=== PATIENT | female | born 1970 | race Caucasian/White ===

== ENCOUNTER 2018-04-11 00:18 | Outpatient (CLI) | payer BC ==
[2018-04-11 09:59] LABS: #Basophils 0.1 thou/uL (0.0-0.2); #Lymphocytes 1.6 thou/uL (1.20-3.40); #Monocytes 0.3 thou/uL (0.11-0.59); #Neutrophils 4.4 thou/uL (1.40-6.50); %Basophils 1.4 % (0.0-1.0); %Eosinophils 0.7 % (0.0-10.0); %Monocytes 5.1 % (0.0-10.0); %Neutrophils 67.8 % (42.0-75.0); Hemoglobin 15.6 g/dL (12.0-16.0); Mean Corpuscular HGB CONC 33.3 g/dL (32.0-36.0); Mean Corpuscular Hemoglobin 31.2 pg (27.0-31.0); Mean Corpuscular Volume 93.8 fL (78.0-98.0); Mean Platelet Volume 8.7 fL (7.4-10.4); Platelet Count 371 thou/uL (130-400); Red Blood Cell (RBC) Count 4.99 mill/uL (4.20-5.40); White Blood Cell (WBC) Count 6.4 thou/uL (4.8-10.8)
[2018-04-11 10:06] LABS: BHCG - Serum Negative (NEGATIVE); Pregs Control Background? CLEAR/WHITE (CLR/WHITE); Pregs Control Bar Appear? YES (CONTROL BAR)
[2018-04-11 10:16] LABS: Anion Gap 17 mmol/L (10-20); BUN (Urea Nitrogen) 12 mg/dL (7.0-18.7); Calc. Creatinine Clearance 0 mL/min (70-130); Calcium 10.2 mg/dL (7.8-10.44); Carbon Dioxide 20 mmol/L (22-29); Chloride 107 mmol/L (98-107); Estimated GFR-MDRD 71; Glucose 106 mg/dL (70-105); Potassium 4.2 mmol/L (3.5-5.1); Sodium 140 mmol/L (136-145)
== END 2018-04-11 00:19 | disposition home or self-care (01) ==
LOC: LABBT 00:18
PROVIDERS: ATTEND Surgery
DX: Z01.812 Encounter for preprocedural laboratory examination (principal); C50.919 Malignant neoplasm of unspecified site of unspecified female breast
CPT/HCPCS: 80048; 84703; 85025

== ENCOUNTER 2018-04-12 12:58 | Outpatient (CLI) | payer BC ==
[~2018-04-12 12:58] MED LIST: Gadobenate Dimeglumine 529 MG/1 ML (20ML VIAL) ONE
--- NOTE | 2018-04-12 15:03 | MRI ---
MRI BILATERAL BREAST WITHOUT AND WITH CONTRAST: History: Right breast cancer at the 10 o'clock position of the right breast. Evaluate for multi-centr ic or contralateral disease. Technique: Multiplanar, multisequence MRI images were obtained of the bilateral breasts without and w ith IV contrast. FINDINGS: Heterogeneously dense breast parenchyma is seen. Minimal background parenchymal enhancement is seen. There are numerous scattered foci of high T2 signal in both breasts which are nonenhancing and repres ent cysts. There is a 9 mm area of enhancement in the outer aspect of the right breast. This is assoc iated an area of susceptibility artifact which likely represents a biopsy clip. This likely correspon ds to the lesion at the 10 o'clock position in the right breast. More superficial to this lesion, the re is a well circumscribed 7 mm enhancing mass. This demonstrates high T2 signal and may represent a prominent intramammary lymph node. This is approximately 1.9 cm from the mass deeper in the breast. B oth of these lesions are approximately 5-6 cm from the nipple areolar complex. No other abnormal areas of enhancement are seen within the right breast or left breast. There is high T1 signal in the ducts leading up to right nipple which may represent proteinaceous or hemorrhagic m aterial. No axillary adenopathy is seen. No internal mammary lymph nodes are identified. The visualized anterior liver and osseous structures are unremarkable. IMPRESSION: There is a right breast which represents the mass previously biopsied and is consistent with the arnaldo ent's diagnosis of malignancy. Superficial to this mass there is a well circumscribed nodule. This ma y represent either a satellite lesion or a prominent intramammary lymph node. If this a lymph node, t his may or may not contain metastatic disease. However, this is very near the biopsied mass and likel y would be removed with a lumpectomy specimen. IMPRESSION: BIRADS category 6 - known malignancy. Appropriate action to be taken.
== END 2018-04-12 12:59 | disposition home or self-care (01) ==
LOC: BICMRI 12:58
PROVIDERS: ATTEND Internal Medicine Hematology & Oncology
DX: C50.411 Malignant neoplasm of upper-outer quadrant of right female breast (principal)
CPT/HCPCS: A9577; C8908

== ENCOUNTER 2018-04-13 14:29 | Outpatient (CLI) | payer BC ==
--- NOTE | 2018-04-13 15:04 | ULT ---
RIGHT AXILLARY ULTRASOUND: Comparison: MRI breast, 04-12-18. History: Right breast cancer. Evaluate for axillary metastatic disease. Technique: Multiplanar grayscale and color doppler images obtained in a targeted ultrasound of the [facility] axilla. IMPRESSION: Normal appearing lymph nodes are seen in the right axilla. The largest measures 2.[address] ill contains a normal fatty hilum. No pathologic appearing lymph nodes are seen in the right axilla. IMPRESSION: No evidence of microscopic spread to the right axilla. POS: BRIGHT
== END 2018-04-13 14:30 | disposition home or self-care (01) ==
LOC: BICULT 14:29
PROVIDERS: ATTEND Internal Medicine Hematology & Oncology
DX: C50.911 Malignant neoplasm of unspecified site of right female breast (principal)
CPT/HCPCS: 76999

== ENCOUNTER 2018-04-14 07:02 | Day surgery (SDC) | payer BC ==
[2018-04-11 09:13] VITALS: BMI 24.0
[2018-04-14] MEDS ORDERED: Fentanyl 100 MCG/2 ML VIAL ONE ×2 (11:42→14:22)
[2018-04-14] MEDS ORDERED: Midazolam HCl 2 mg/2 ml Vial ONE (11:43)
[2018-04-14] MEDS ORDERED: Bupivacaine HCl 0.5%/Epinephrine 1:200,000/PF 30 ml Vial ONE (13:00)
[2018-04-14] MEDS ORDERED: Lidocaine 2% PF 5 ML VIAL ONE (13:00)
[2018-04-14] MEDS ORDERED: Dexamethasone 20 MG/5 ML VIAL ONE (13:39)
[2018-04-14] MEDS ORDERED: Ondansetron PF 4 MG/2 ML Vial ONE (13:39)
[2018-04-14] MEDS ORDERED: PROPOFOL 200 MG/20 ML VIAL ONE (13:39)
[2018-04-14] MEDS ORDERED: Lidocaine 1% PF 5 ML VIAL ONE (13:39)
[2018-04-14] MEDS ORDERED: Meperidine HCl/PF 25 MG/ML VIAL ONE (14:23)
--- NOTE | 2018-04-14 14:30 | NM ---
NUCLEAR MEDICINE LYMPHASCINTIGRAPHY: History Right breast cancer. COMPARISON: None. TECHNIQUE: The patient was administered 0.392 mCi of Technetium 99m sulfur colloid. Images were obtained immedi ately, at 1 and 2 hours. FINDINGS: On the 2 hour images, there is uptake in the radiotracer best demonstrated on the right lateral view. Uptake is presumed to be in an axillary lymph node. IMPRESSION: Uptake in the right breast, presumed to be in the axilla as noted on the 2-hour view. The skin was m arked. POS: BRIGHT
[2018-04-14] MEDS ORDERED: HYDROcodone/Acetaminophen 5/325 mg Tablet ONE (15:34)
--- NOTE | 2018-04-15 07:44 | MMO ---
RIGHT BREAST NEEDLE LOCALIZATION RIGHT BREAST SURGICAL SPECIMEN RADIOGRAPH: History: Right breast cancer. Surgical excision for lumpectomy. FINDINGS: Successful right breast needle localization. 7.5 cm [place] needle and wire are adjacent to the clip. F ilms were marked. Technique: Consent obtained to perform a right breast needle localization. Right breast was compressed in the la teral projection and the clip was identified. Skin was prepped and draped in sterile fashion. 1% Lido sanjiv, buffered with sodium bicarbonate was used for local anesthesia. A 7.5 [place] needle and wire we re placed such that the wire and needle were adjacent to the clip. Pre and post wire deployment image s were obtained. There were no immediate or post procedure complications. [place] needle was secured to the patient. SPECIMEN RADIOGRAPH: There is a specimen radiograph demonstrating the biopsy clips and wire. IMPRESSION: Successful right breast needle localization. POS: [facility]
--- NOTE | 2018-04-15 14:46 | OP ---
DATE OF PROCEDURE: 04/14/2018 PREOPERATIVE DIAGNOSIS: Right breast cancer. POSTOPERATIVE DIAGNOSIS: Right breast cancer. PROCEDURE: 1. Partial mastectomy after needle localization. 2. Right deep axillary node biopsy and sentinel node protocol. ANESTHESIA: General. ESTIMATED BLOOD LOSS: Minimal. COMPLICATIONS: None. SPECIMEN: 1. Right breast mass marked with two short superior, one long lateral, sent to Path for final diagnosis. 2. Smithers node sent for final diagnosis. DESCRIPTION OF PROCEDURE: The patient underwent preop placement of needle localization wire and had lymphoscintigraphy on the day of surgery. She was taken to the operating room and laid supine on the operating room table. After general anesthetic was obtained, the right chest, lateral chest wall, axilla was all prepped and draped in a sterile fashion. Incision was made on the edge of the areola in the area of needle localization wire. Flaps were raised superior, medially, inferiorly and laterally around the end of the needle localization wire. The specimen was marked with two short superior, one long lateral, and sent the specimen x-ray, which revealed a clip to be in the specimen. The wound was irrigated. Local anesthetic was applied and the wound was closed in 3-0 Vicryl, 4-0 Monocryl, and Dermabond. 5 mL of methylene blue dye had been infiltrated under the right nipple prior to the procedure and massaged for 10 minutes. A second incision was made along the inferior hairline of the right axilla and cautery was dissected down through clavipectoral fascia into the axilla. Neoprobe was used to find the area of increased uptake and there were a few lymph nodes removed. Background counts dropped to 0. The wound was irrigated. Local anesthetic was applied. The wound was closed in 3-0 Vicryl, 4-0 Monocryl, and Dermabond. The patient was sent to Recovery in stable condition. All instrument counts, needle counts, and lap counts are correct. Job ID: [id number]
== END 2018-04-14 17:15 | disposition home or self-care (01) ==
LOC: SDC 07:02
PROVIDERS: ATTEND Surgery
PROC: 0HBT0ZX Excision of Right Breast, Open Approach, Diagnostic (ICD-10-PCS; principal; 2018-04-14)
PROC: 0HBT0ZZ Excision of Right Breast, Open Approach (ICD-10-PCS; principal; 2018-04-14)
DX: C50.411 Malignant neoplasm of upper-outer quadrant of right female breast (principal); Z17.0 Estrogen receptor positive status [ER+]; Z79.899 Other long term (current) drug therapy; Z88.6 Allergy status to analgesic agent
CPT/HCPCS: 19281; 76098; 78195; 88307; 88342; A9541; J0670; J1100; J2001; J2175; J2250; J2405; J2704; J3010; Q9968

== ENCOUNTER 2018-04-28 14:29 | Outpatient (CLI) | payer BC ==
--- NOTE | 2018-04-28 15:40 | ULT ---
LIMITED RIGHT BREAST ULTRASOUND: Date: 04/28/18 PROVIDED CLINICAL HISTORY: History of breast cancer, accessory breast tissue prominence. FINDINGS: Correlation is made with the breast MRI dated 04/12/18 Limited sonographic interrogation was performed of the inferior aspect of the right breast in the reg ion of palpable concern. There is a small intramammary lymph node measuring approximately 5.0 mm. Adj acent to this is a circumscribed anechoic structure measuring about 7-8 mm without internal complexit y or evidence for flow. This portion of the breast demonstrated no enhancing findings on the breast M RI of 04/12/18. IMPRESSION: No concerning sonographic findings are seen involving the interrogated portion of the right breast. POS: OFF
== END 2018-04-28 14:30 | disposition home or self-care (01) ==
LOC: BICULT 14:29
PROVIDERS: ATTEND Internal Medicine Hematology & Oncology
DX: C50.911 Malignant neoplasm of unspecified site of right female breast (principal)

== ENCOUNTER 2018-04-29 11:20 | Day surgery (SDC) | payer BC ==
[2018-04-29] MEDS ORDERED: Bupivacaine/Epinephrine 0.25% 30 ML VIAL ONE (12:03)
[2018-04-29] MEDS ORDERED: Lidocaine 2% PF 5 ML VIAL ONE (12:03)
[2018-04-29] MEDS ORDERED: Fentanyl 100 MCG/2 ML VIAL ONE (12:20)
[2018-04-29] MEDS ORDERED: Meperidine HCl/PF 25 MG/ML VIAL ONE (13:20)
[2018-04-29] MEDS ORDERED: PROPOFOL 200 MG/20 ML VIAL ONE (13:47)
[2018-04-29] MEDS ORDERED: Lidocaine 1% PF 5 ML VIAL ONE (13:47)
--- NOTE | 2018-04-29 14:04 | OP ---
DATE OF PROCEDURE: 04/29/2018 PREOPERATIVE DIAGNOSES: Right breast cancer. POSTOPERATIVE DIAGNOSIS: Right breast cancer. PROCEDURE PERFORMED: Tunneled central line and subcutaneous port (MediPort CT injectable low-profile). ANESTHESIA: General. ESTIMATED BLOOD LOSS: Minimal. COMPLICATIONS: None. SPECIMEN: None. FINDINGS: The tip of the catheter was at the atriocaval junction. DESCRIPTION OF PROCEDURE: The patient was taken to the operating room and laid supine on the operating room table. After general anesthetic was obtained, bilateral chest and neck was prepped and draped in a sterile fashion. Local anesthetic was infiltrated of the left IJ vein. Internal jugular vein was cannulated using a 22-gauge finder needle followed by a Seldinger wire was passed into the superior vena cava under fluoro guidance. Small lu was made at the wire entrance site. A separate 3 cm incision was made in the left upper chest. Subcutaneous pocket was made below the lower incision. Tubing for the MediPort and tunneled from the inferior to the superior incision. The suture sheath was placed over the wire into the superior vena cava under fluoro guidance. The dilator and wire were removed and the end of the catheter was sewed into the sheath and the sheath was peeled away. The tip of the catheter was at the atriocaval junction. MediPort tubing cut to fit the MediPort with lower incision, connected to the MediPort, was just sewn to the chest wall in the subcutaneous pocket using Prolene. MediPort flushes and draws blood without difficulty, was flushed with a heparin flush. The wounds were irrigated and closed using 3-0 Vicryl, 4-0 Monocryl, and Dermabond. The patient was sent to Recovery in stable condition. All instrument counts, needle counts, and lap counts were correct. Job ID: [id number]
[2018-04-29] MEDS ORDERED: diphenhydrAMINE 50 MG/ML VIAL ONE (14:22)
--- NOTE | 2018-04-29 16:03 | RAD ---
CHEST ONE VIEWS: HISTORY: Status post Mediport insertion for position evaluation. FINDINGS: Left-sided Mediport filter in place with the tip in the upper superior vena cava region. Heart size is normal. Lungs are clear. No pneumothorax or pleural effusion. IMPRESSION: Left Mediport catheter placement with the tip in the superior aspect of the superior vena cava. No p neumothorax. POS: [facility]
== END 2018-04-29 15:30 | disposition home or self-care (01) ==
LOC: SDC 11:20
PROVIDERS: ATTEND Surgery
PROC: 02HV33Z Insertion of Infusion Device into Superior Vena Cava, Percutaneous Approach (ICD-10-PCS; principal; 2018-04-29)
DX: C50.911 Malignant neoplasm of unspecified site of right female breast (principal); Z88.6 Allergy status to analgesic agent; Z88.8 Allergy status to other drugs, medicaments and biological substances; Z79.899 Other long term (current) drug therapy
CPT/HCPCS: 71045; C1788; J1200; J1642; J2001; J2175; J3010

== ENCOUNTER 2018-05-03 12:39 | Outpatient (CLI) | payer BC | END 2018-05-03 12:40 | disposition home or self-care (01) | LOC: ULT 12:39 | PROVIDERS: ATTEND Internal Medicine Hematology & Oncology | DX: Z51.11 Encounter for antineoplastic chemotherapy (principal); C50.919 Malignant neoplasm of unspecified site of unspecified female breast; I08.1 Rheumatic disorders of both mitral and tricuspid valves; Z79.899 Other long term (current) drug therapy | CPT/HCPCS: 93306 ==

== ENCOUNTER 2019-03-15 09:31 | Outpatient (CLI) | payer BC ==
--- NOTE | 2019-03-15 10:50 | MMO ---
Bilateral MAMMO Bilat Diag DDI+DARA. CLINICAL HISTORY: Patient is 49 years old and is seen for diagnostic exam. The patient has no family history of breast cancer. The patient has a history of invasive ductal right breast carcinoma at age 48. The patient has a history of right Lumpectomy at age 48 - malignant and right Ultrasound Guided Core Biopsy at age 48 - malignant. VIEWS: The views performed were: bilateral craniocaudal with tomosynthesis; bilateral mediolateral oblique with tomosynthesis; bilateral mediolateral with tomosynthesis; and left exaggerated craniocaudal. FILMS COMPARED: The present examination has been compared to prior imaging studies performed at [facility] on 02/10/2017, 03/10/2018 and 03/25/2018, and at [facility] on 03/15/2019. This study has been interpreted with the assistance of computer-aided detection. MAMMOGRAM FINDINGS: The breasts are heterogeneously dense, which could obscure a lesion on mammography. There are new post operative changes seen in the right breast. There are no concerning mammographic or sonographic abnormalities in the area of palpable concern. The patient is referred back to her clinician. Negative imaging findings should not preclude biopsy if clinical findings are suspicious. There are no suspicious masses, suspicious calcifications, or new areas of architectural distortion. IMPRESSION: THERE ARE NO CONCERNING MAMMOGRAPHIC ABNORMALITIES IN THE AREA OF PALPABLE CONCERN. THE PATIENT IS REFERRED BACK TO HER CLINICIAN. NEGATIVE IMAGING FINDINGS SHOULD NOT PRECLUDE BIOPSY IF CLINICAL FINDINGS ARE SUSPICIOUS. A ROUTINE FOLLOW-UP MAMMOGRAM IN 1 YEAR IS RECOMMENDED. THE RESULTS OF THIS EXAM WERE SENT TO THE PATIENT. ACR BI-RADS Category 2 - Benign finding MAMMOGRAPHY NOTE: 1. A negative mammogram report should not delay a biopsy if a dominant of clinically suspicious mass is present. 2. Approximately 10% to 15% of breast cancers are not detected by mammography. 3. Adenosis and dense breasts may obscure an underlying neoplasm. Reported by: GERA JANE MD Electonically Signed: [id number]
--- NOTE | 2019-03-15 11:20 | ULT ---
LIMITED RIGHT BREAST ULTRASOUND: DATE: 03/15/2019. PROVIDED CLINICAL HISTORY: Right breast palpable abnormality. FINDINGS: Limited sonographic interrogation was performed of the right breast in the region of palpable concern . The sonographic appearance of the breast tissue in this region is normal. IMPRESSION: BIRADS category 1 - negative. Negative imaging findings should not preclude further evaluation of a clinically suspicious area. The patient is referred back to her clinician. POS: OFF
== END 2019-03-15 09:32 | disposition home or self-care (01) ==
LOC: BICMAMMO 09:31
PROVIDERS: ATTEND Internal Medicine Hematology & Oncology
DX: C50.911 Malignant neoplasm of unspecified site of right female breast (principal)
CPT/HCPCS: 77066; G0279

== ENCOUNTER 2020-01-15 08:19 | Outpatient (CLI) | payer BC ==
--- NOTE | 2020-01-15 09:37 | ULT ---
EXAM: US Breast Limited Rt DATE: 01/15/2020 12:00 AM INDICATION: Palpable abnormality in the right breast outer quadrant COMPARISON: Diagnostic mammogram dated January 15, 2020. FINDING: No suspicious sonographic abnormality is seen within the region of palpable interest of the right breast. IMPRESSION:BI-RADS Category 2-benign. No suspicious sonographic abnormality is seen within the region of palpable interest within the outer aspect of the right breast. Recommend return to annual diagnostic mammographic screening. Negative imaging should never deter biopsy if findings on clinical exam are suspicious. Patient was counseled on the findings prior to leaving the [facility].
--- NOTE | 2020-01-15 09:41 | BD ---
EXAM: DEXA bone density examination HISTORY: 49-year-old postmenopausal female for screening COMPARISON: None FINDINGS: L1--bone mineral density 0.702 g/sq cm; T score 2.6 L2--bone mineral density 0.809 g/sq cm; T score 2.0 L3--bone mineral density 0.795 g/sq cm; T score -2.6 L4--bone mineral density 0.864 g/sq cm; T score -1.8 Total L1-L4--bone mineral density 0.796 g/sq cm; T score -2.3 Left femoral neck--bone mineral density0.744; T score 0.9 Total proximal left femur--bone mineral density 0.934; T score -0.1 IMPRESSION: Osteopenia. This patient has a 10 year WHO fracture risk of a major osteoporotic fracture of 8.6% and of a hip fracture of 0.2%.
--- NOTE | 2020-01-15 09:53 | MMO ---
Bilateral MAMMO Bilat Diag DDI+DARA. CLINICAL HISTORY: Patient is 49 years old and is seen for diagnostic exam. The patient has no family history of breast cancer. The patient has a history of invasive ductal right breast carcinoma at age 48. The patient has a history of right Lumpectomy at age 48 - malignant and right Ultrasound Guided Core Biopsy at age 48 - malignant. VIEWS: The views performed were: bilateral craniocaudal with tomosynthesis; bilateral mediolateral oblique with tomosynthesis; and bilateral mediolateral with tomosynthesis. FILMS COMPARED: The present examination has been compared to prior imaging studies performed at [facility] on 03/25/2018, and at [facility] on 03/15/2019 and 01/15/2020. This study has been interpreted with the assistance of computer-aided detection. MAMMOGRAM FINDINGS: The breasts are heterogeneously dense, which could obscure a lesion on mammography. Finding 1: There is a stable area of skin retraction, a stable area of architectural distortion and a stable post-surgical scar seen in the right breast. Finding 2: There is no radiographic abnormality in the region of the palpable abnormality in the outer region of the right breast. No sonographic abnormality is seen in the region of palpable abnormality. There are no suspicious masses, suspicious calcifications, or new areas of architectural distortion. IMPRESSION: FINDING 1: STABLE AREA OF SKIN RETRACTION, AREA OF ARCHITECTURAL DISTORTION AND POST-SURGICAL SCAR IN THE RIGHT BREAST ARE BENIGN. FINDING 2: PALPABLE ABNORMALITY IN THE RIGHT BREAST IS BENIGN. NO MAMMOGRAPHIC OR SONOGRAPHIC ABNORMALITIES ARE PRESENT TO CORRELATE WITH THE SITE OF PALPABLE CONCERN. THE PATIENT WILL BE REFERRED BACK TO HER CLINICIAN FOR FURTHER CARE. BIOPSY SHOULD NOT BE PRECLUDED BY THE ABSCENCE OF IMAGING FINDINGS, IN THE SETTING OF CLINICAL CONCERN FOR MALIGNANCY. THE PATIENT WAS INFORMED OF THE EXAM RESULTS. A ROUTINE FOLLOW-UP MAMMOGRAM IN 1 YEAR IS RECOMMENDED. THE RESULTS OF THIS EXAM WERE SENT TO THE PATIENT. ACR BI-RADS Category 2 - Benign finding MAMMOGRAPHY NOTE: 1. A negative mammogram report should not delay a biopsy if a dominant of clinically suspicious mass is present. 2. Approximately 10% to 15% of breast cancers are not detected by mammography. 3. Adenosis and dense breasts may obscure an underlying neoplasm. Reported by: DORIS MANZANO MD Electonically Signed: [id number]
== END 2020-01-15 08:20 | disposition home or self-care (01) ==
LOC: BICMAMMO 08:19
PROVIDERS: ATTEND Family Medicine
DX: N95.9 Unspecified menopausal and perimenopausal disorder (principal); N63.10 Unspecified lump in the right breast, unspecified quadrant; M85.88 Other specified disorders of bone density and structure, other site; Q83.8 Other congenital malformations of breast
CPT/HCPCS: 77066; 77080; G0279

== ENCOUNTER 2021-01-16 10:23 | Outpatient (CLI) | payer BC | END 2021-01-16 10:24 | disposition home or self-care (01) | LOC: BICMAMMO 10:23 | PROVIDERS: ATTEND Surgery | DX: Z08 Encounter for follow-up examination after completed treatment for malignant neoplasm (principal); Z85.3 Personal history of malignant neoplasm of breast | CPT/HCPCS: 77066; G0279 ==

== ENCOUNTER 2022-02-02 13:48 | Outpatient (CLI) | payer BC | END 2022-02-02 13:49 | disposition home or self-care (01) | LOC: BICMAMMO 13:48 | PROVIDERS: ATTEND Surgery | DX: Z12.39 Encounter for other screening for malignant neoplasm of breast (principal); R92.8 Other abnormal and inconclusive findings on diagnostic imaging of breast; R92.1 Mammographic calcification found on diagnostic imaging of breast; Z98.890 Other specified postprocedural states | CPT/HCPCS: 77066; G0279 ==

== ENCOUNTER 2023-03-17 13:19 | Outpatient (CLI) | payer BC | END 2023-03-17 13:20 | disposition home or self-care (01) | LOC: BICMAMMO 13:19 | PROVIDERS: ATTEND Surgery | DX: Z08 Encounter for follow-up examination after completed treatment for malignant neoplasm (principal); Z85.3 Personal history of malignant neoplasm of breast | CPT/HCPCS: 77066; G0279 ==